=== PATIENT | female | born 1945 | race Caucasian/White ===

== ENCOUNTER 2017-07-25 12:38 | Inpatient (IN) | payer MEDICARE, BC ==
[~2017-07-25] VITALS: Ht 157.5 cm; Wt 55.7 kg
--- NOTE | ~2017-07-25 | EC ---
PATIENT:YENI ZHU DATE OF SERVICE: 07/25/17 SEX: F MEDICAL RECORD: [id number] DATE OF : 41 LOCATION:D.M2 D.213 AGE OF PATIENT: 72 ADMISSION DATE: 07/25/17 REFERRING PHYSICIAN: INTERPRETING PHYSICIAN: CALVIN BEAULIEU MD ECHOCARDIOGRAM REPORT ECHO CHARGES 4 ECHO COMPLETE CLINICAL DIAGNOSIS: CHF ECHOCARDIOGRAPHIC MEASUREMENTS (adult normal given) AC root (d.<3.7cm) 2.1 cm LV Septum d (<1.2 cm> 1.0 cm Valve Excursion 1.0 cm LV Septum (systole) 1.1 cm Left Atria (s.<4.0cm> 4.1 cm LVPW d(<1.2cm) 1.1 cm RV (d.<2.3cm) 4.2 cm LVPW (sytole) 1.3 cm LV diastole(<5.6CM) 5.8 cm MV E-F(>70mm/sec) cm LV systole 4.9 cm LVOT Diameter 1.5 cm MV exc.(>10mm) 1.1 cm Est.ejection fraction (50-75%) % Pericardial Effusion N DOPPLER: LVIT cm/sec A cm/sec E cm/sec LA cm/sec RVSP 37 mmHg LVOT 61 cm/sec AOP1/2T m/s Asc. Ao 149 cm/sec RVOT 26 cm/sec RA cm/sec PA 98 cm/sec AV Gradient Peak 8.89 mmHg AV Mean 5.35 mmHg AV Area 1.0 cm MV Gradient Peak 8.62 mmHg MV Mean 1.86 mmHg MV Area cm COMMENTS: [place]ard Machine Operator: 2 DARCY PIZARRO Bar Attendant: 3 Dr. Freeman TAPE# PACS DATE OF SERVICE: 07/27/2017 Adequate 2D echo, color flow and spectral Doppler, and M-mode. No LVH. LV internal dimensions are upper limits of normal, mildly dilated at 5.8 cm. 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 Estimated EF 20% to 25%. Aortic valve is tricuspid. No stenosis by Doppler interrogation. The left atrium is upper limits of normal, mildly dilated at 4.1 cm. Mitral valve shows no prolapse. Akze-lb-rbsosfnp MR. Right-sided chamber is grossly normal. Mild plus TR. ECHOCARDIOGRAM REPORT [id number] YENI ZHU TRANSINT:[id number] Voice Confirmation ID: [id number] DOCUMENT ID: [id number] 08/01/2017 Edited to correct date of service, dmm. CALVIN BEAULIEU MD at 0823 CC: [id number] DICTATION DATE: 07/28/17 1047 COSMETICIAN APPRENTICE: 07/28/17 1538 DIS IN 07/30/17 [place] [id number] [place] [id number]
[2017-07-25 13:24] LABS: BASOPHILS 0.2 % (0-2); EOSINOPHILS 0.1 % (0-7); HEMATOCRIT 44.7 % (36.0-48.0); HEMOGLOBIN 15.3 g/dL (12-16); IMMATURE GRANULOCYTES 0.4 % (0-5); LYMPHOCYTES 18.8 % (15-50); MCH 31.9 pg (26.0-34.0); MCHC 34.2 g/dL (31.0-37.0); MCV 93.3 fL (80.0-100.0); MEAN PLATELET VOLUME 10.1 fL (7.4-10.4); MONOCYTES 5.7 % (2-11); NEUTROPHILS 74.8 % (40-80); PLATELET COUNT 351 10x3/uL (130-400); RBC 4.79 10x6/uL (4.00-5.40); RDW 15.2 % (11.5-14.5); WBC 9.3 10x3/uL (4.8-10.8)
[2017-07-25 13:37] LABS: ALBUMIN 3.2 g/dL (3.4-5.0); ANION GAP 15.7 mmol/L (8-16); CALCIUM 8.6 mg/dL (8.5-10.1); CARBON DIOXIDE 21.9 mmol/L (21.0-32.0); CREATININE - SERUM 1.1 mg/dL (0.6-1.3); POTASSIUM - SERUM 4.6 mmol/L (3.5-5.1); PROTEIN - SERUM 6.2 g/dL (6.4-8.2)
[2017-07-25 14:14] LABS: APPEARANCE HAZY (CLEAR); BILIRUBIN NEGATIVE (NEGATIVE); COLOR YELLOW (YELLOW); GLUCOSE NEGATIVE (NEGATIVE); KETONE NEGATIVE (NEGATIVE); NITRITE NEGATIVE (NEGATIVE); PROTEIN TRACE mg/dL (NEGATIVE); SPECIFIC GRAVITY 1.025 (1.005-1.020)
[2017-07-25 14:15] LABS: BACTERIA MODERATE /hpf (NONE SEEN); WHITE CELLS - URINE >50 /hpf (0-5)
[2017-07-25 14:16] LABS: MUCUS <1+ /lpf (NONE SEEN)
[2017-07-25 17:27] VITALS: BP 111/78; BMI 25.3
[2017-07-25 21:44] VITALS: BP 118/76
[2017-07-26 01:15] VITALS: BP 124/83
[2017-07-26 05:58] VITALS: BP 127/89
[2017-07-26 06:11] LABS: BASOPHILS 0.2 % (0-2); EOSINOPHILS 0.7 % (0-7); HEMOGLOBIN 15.4 g/dL (12-16); IMMATURE GRANULOCYTES 0.2 % (0-5); LYMPHOCYTES 27.5 % (15-50); MCH 31.5 pg (26.0-34.0); MCHC 33.5 g/dL (31.0-37.0); MCV 94.1 fL (80.0-100.0); MEAN PLATELET VOLUME 10.1 fL (7.4-10.4); MONOCYTES 8.3 % (2-11); NEUTROPHILS 63.1 % (40-80); PLATELET COUNT 331 10x3/uL (130-400); RBC 4.89 10x6/uL (4.00-5.40); RDW 15.4 % (11.5-14.5); WBC 9.9 10x3/uL (4.8-10.8)
[2017-07-26 06:34] LABS: ALBUMIN 3.2 g/dL (3.4-5.0); ANION GAP 16.5 mmol/L (8-16); BILIRUBIN - TOTAL 0.88 mg/dL (0.2-1.3); CALCIUM 8.4 mg/dL (8.5-10.1); CARBON DIOXIDE 23.5 mmol/L (21.0-32.0); CREATININE - SERUM 1.1 mg/dL (0.6-1.3); PROTEIN - SERUM 5.7 g/dL (6.4-8.2)
[2017-07-26 08:06] VITALS: BP 124/79
[2017-07-26 12:52] VITALS: BMI 25.2
[2017-07-26 15:42] VITALS: BP 120/88
[2017-07-26 15:48] VITALS: Ht 157.5 cm; Wt 55.7 kg
[2017-07-26] MEDS ORDERED: LIPITOR40 MG PO (16:00)
[2017-07-26] MEDS ORDERED: ELIQUIS2.5 MG PO (16:01)
[2017-07-26] MEDS ORDERED: COLACE100 MG PO (16:01)
[2017-07-26] MEDS ORDERED: NUTRISOURCE FI1 EACH PO (16:01)
[2017-07-26] MEDS ORDERED: MIRALAX17 GM PO (16:02)
[2017-07-26] MEDS ORDERED: ENTRESTO 24 MG1 EACH PO (16:02)
[2017-07-26] MEDS ORDERED: TOPROL XL25 MG PO (16:02)
[2017-07-27 04:00] VITALS: BP 105/72
[2017-07-27 07:00] LABS: HEMATOCRIT 47.4 % (36.0-48.0); LYMPHOCYTES 29.2 % (15-50); MCH 31.3 pg (26.0-34.0); MCHC 33.8 g/dL (31.0-37.0); MCV 92.8 fL (80.0-100.0); MEAN PLATELET VOLUME 9.5 fL (7.4-10.4); NEUTROPHILS 64.3 % (40-80); PLATELET COUNT 333 10x3/uL (130-400); RBC 5.11 10x6/uL (4.00-5.40); WBC 8.4 10x3/uL (4.8-10.8)
[2017-07-27 07:07] LABS: CALCIUM 8.6 mg/dL (8.5-10.1); CREATININE - SERUM 1.3 mg/dL (0.6-1.3)
[2017-07-27 07:09] LABS: ANION GAP 12.1 mmol/L (8-16); CARBON DIOXIDE 33.2 mmol/L (21.0-32.0); POTASSIUM - SERUM 3.3 mmol/L (3.5-5.1)
[2017-07-27 08:25] VITALS: BP 106/72
[2017-07-27 11:43] VITALS: BP 107/66
[2017-07-27 15:49] VITALS: BP 117/79
[2017-07-27 19:00] VITALS: BP 101/67
[2017-07-28 04:00] VITALS: BP 122/88
[2017-07-28 05:34] LABS: BASOPHILS 0.1 % (0-2); EOSINOPHILS 1.5 % (0-7); HEMATOCRIT 44.8 % (36.0-48.0); IMMATURE GRANULOCYTES 0.1 % (0-5); LYMPHOCYTES 28.6 % (15-50); MCH 31.4 pg (26.0-34.0); MCHC 33.5 g/dL (31.0-37.0); MCV 93.7 fL (80.0-100.0); MEAN PLATELET VOLUME 10.3 fL (7.4-10.4); MONOCYTES 10.8 % (2-11); NEUTROPHILS 58.9 % (40-80); PLATELET COUNT 341 10x3/uL (130-400); RBC 4.78 10x6/uL (4.00-5.40); RDW 15.4 % (11.5-14.5); WBC 7.4 10x3/uL (4.8-10.8)
[2017-07-28 05:53] LABS: ANION GAP 12.1 mmol/L (8-16); CARBON DIOXIDE 30.4 mmol/L (21.0-32.0); CREATININE - SERUM 1.1 mg/dL (0.6-1.3); POTASSIUM - SERUM 3.5 mmol/L (3.5-5.1)
[2017-07-28 07:00] VITALS: BP 128/87
[2017-07-28 21:39] VITALS: BP 108/65
[2017-07-29 03:30] VITALS: BP 128/84
[2017-07-29 05:22] LABS: BASOPHILS 0.4 % (0-2); EOSINOPHILS 1.2 % (0-7); HEMATOCRIT 46.9 % (36.0-48.0); HEMOGLOBIN 16.3 g/dL (12-16); IMMATURE GRANULOCYTES 0.1 % (0-5); LYMPHOCYTES 34.9 % (15-50); MCHC 34.8 g/dL (31.0-37.0); MCV 94.9 fL (80.0-100.0); MEAN PLATELET VOLUME 10.2 fL (7.4-10.4); MONOCYTES 7.9 % (2-11); NEUTROPHILS 55.5 % (40-80); PLATELET COUNT 363 10x3/uL (130-400); RBC 4.94 10x6/uL (4.00-5.40); RDW 15.5 % (11.5-14.5)
[2017-07-29 05:27] LABS: WBC 9.4 10x3/uL (4.8-10.8)
[2017-07-29 05:33] LABS: ANION GAP 13.9 mmol/L (8-16); CARBON DIOXIDE 30.8 mmol/L (21.0-32.0); CREATININE - SERUM 1.2 mg/dL (0.6-1.3); POTASSIUM - SERUM 3.7 mmol/L (3.5-5.1)
[2017-07-29 08:56] VITALS: BP 98/66
[2017-07-29 12:15] VITALS: BP 107/69
[2017-07-29 16:19] VITALS: BP 110/66
[2017-07-29 19:00] VITALS: BP 105/75
[2017-07-30 04:00] VITALS: BP 96/61
[2017-07-30 06:31] LABS: BASOPHILS 0.1 % (0-2); EOSINOPHILS 1.9 % (0-7); HEMATOCRIT 43.9 % (36.0-48.0); HEMOGLOBIN 14.6 g/dL (12-16); IMMATURE GRANULOCYTES 0.1 % (0-5); MCH 31.2 pg (26.0-34.0); MCHC 33.3 g/dL (31.0-37.0); MCV 93.8 fL (80.0-100.0); MEAN PLATELET VOLUME 10.5 fL (7.4-10.4); MONOCYTES 11.1 % (2-11); NEUTROPHILS 60.8 % (40-80); PLATELET COUNT 308 10x3/uL (130-400); RBC 4.68 10x6/uL (4.00-5.40); RDW 15.1 % (11.5-14.5)
[2017-07-30 06:34] LABS: ANION GAP 15.1 mmol/L (8-16); CALCIUM 8.6 mg/dL (8.5-10.1); CARBON DIOXIDE 30.8 mmol/L (21.0-32.0); CREATININE - SERUM 1.1 mg/dL (0.6-1.3); POTASSIUM - SERUM 3.9 mmol/L (3.5-5.1)
[2017-07-30 06:36] LABS: WBC 6.7 10x3/uL (4.8-10.8)
[2017-07-30 08:23] VITALS: BP 99/74
[2017-07-30 11:35] VITALS: BP 90/62
== END 2017-07-30 12:12 | disposition home or self-care (01) | DRG 291 ==
LOC: D.ER 12:38 → D.M2 15:49
PROVIDERS: Family Medicine; Internal Medicine Nephrology
DX: I50.33 Acute on chronic diastolic (congestive) heart failure (principal); G93.40 Encephalopathy, unspecified; N39.0 Urinary tract infection, site not specified; F01.51 Vascular dementia, unspecified severity, with behavioral disturbance; I69.919 Unspecified symptoms and signs involving cognitive functions following unspecified cerebrovascular disease; Z87.891 Personal history of nicotine dependence; F22 Delusional disorders

== ENCOUNTER 2018-05-03 12:49 | Inpatient (IN) | payer MEDICARE, BC ==
[~2018-05-03] VITALS: Ht 157.5 cm; Wt 52.2 kg
--- NOTE | ~2018-05-03 | MORECARE ---
CASE MANAGEMENT DISCHARGE SUMMARY PATIENT: YENI ZHU UNIT: [id number] ADM DATE: 05/03/18 AGE: 72 : 43 SEX: F ROOM/BED: D.2227 AUTHOR: EMANUEL,DOC PHYSICIAN: REFERRING PHYSICIAN: NATHAN JARRETT MD DATE OF SERVICE: 05/08/18 Discharge Plan Patient Name: YENI HZU Facility: [facility]:[place] : 1945 Planned Disposition: Anticipated Discharge Date: 05/06/18 Discharge Date: Expected LOS: 3 Initial Reviewer: [email or web address] Initial Review Date: 05/03/2018 Generated: 05/08/18 6:00 pm Comments DCP- Discharge Planning Updated by [id number]: Leena Melgar on 05/08/18 3:[address] Attempted to call the assistant center director at [facility] without success. [place] attempted to have me speak with Jay (assistant county engineer), but he is unavailable. Will attempt to speak with director tomorrow to have patient transferred [facility] to [facility]. CM will continue to follow and assist with discharge planning/needs. DCP- Discharge Planning Updated by [email or web address]: Leena Melgar on 05/08/18 12:[address] Spoke with Luci at the [facility] memory care unit twice today concerning discharge today or tomorrow. States the DON may need to see her first and she will have her call me. I have not heard from her today so I recalled and Luci states "Elise should be back in the office in 30 minutes." Will try and call again in 30 minutes. I notified the patient of discharge tomorrow and she states I can call her son. I spoke with her son, Amilcar and he is in agreement with discharge. He [facility]. CM will continue to follow and assist with discharge planning/needs. DCP- Discharge Planning Updated by [email or web address]: Vinita Bob on 05/03/18 5:[address] Patient Name: YENI ZHU Admission Status: ER Accout number: [id number] Admission Date: 05-03-2018 : 1945 Admission Diagnosis: Attending: NATHAN JARRETT Current LOS: 1 Anticipated DC Date: 05-06-2018 Planned Disposition: Primary Insurance: MEDICARE A & B Discharge Planning Comments: CM met with patient her son Amilcar, and her sister Juana to complete initial dc planning assessment. CM educated all on the CM role and verbal consent given by patient to complete assessment. Patient lives at the [facility] Care Unit. Juana reports that she has increased altered mental status changes this am. She is forgetful but can usually carry on conversation with her. She is not able to have conversation or answer questions in the ER. At discharge [facility] plan [facility] and Juana feels this is a safe discharge. Juana denied known discharge needs at this time. CM will continue to follow and will assist as needed with dc plans/needs. See below for more assessment information. Greenhouse Grower: Vinita Bob RN, [facility] DCPIA - Discharge Planning Initial Assessment Updated by [email or web address]: Vinita Bob on 05/03/18 6:00 pm * Is the patient Alert and Oriented? No * How many steps to enter\\exit or inside your home? None * PCP Dr. Bailey * Pharmacy [facility] * Preadmission Environment Assisted Living * Facility Name [facility] * ADLs Partial Dependent * Partial ADLs (Assistance needed) Bathing Dressing Medication Management Toileting * Equipment None * List name and contact numbers for known caregivers / representatives who currently or will assist patient after discharge: Juana Wong - sister - [phone] Amilcar Pedraza - son - [phone] * Verbal permission to speak to the caregivers and representatives has been obtained from the patient. Yes * Community resources currently utilized None * Additional services required to return to the preadmission environment? No * Can the patient safely return to the preadmission environment? Yes * Has this patient been hospitalized within the prior 30 days at any hospital? No Last DP export: 05/08/18 12:24 Patient Name: YENI ZHU Page 48775 at 1700 All edits/amendments must be made on the electronic document DICTATION DATE: 05/08/181658 MOLD SPRAYER: MO 05/08/181658 RPT#: [id number] DC DATE: STATUS: ADM IN [facility] [address] [facility] [place] [address] END OF REPORT
--- NOTE | ~2018-05-03 | MORECARE ---
CASE MANAGEMENT DISCHARGE SUMMARY PATIENT: YENI ZHU UNIT: [id number] ADM DATE: 05/03/18 AGE: 72 : 43 SEX: F ROOM/BED: D.2227 AUTHOR: EMANUEL,DOC PHYSICIAN: REFERRING PHYSICIAN: NATHAN JARRETT MD DATE OF SERVICE: 05/12/18 Discharge Plan Patient Name: YENI ZHU Facility: [facility]:[place] : 1945 Planned Disposition: Assisted Living Anticipated Discharge Date: 05/06/18 Discharge Date: 05/09/2018 Expected LOS: 3 Initial Reviewer: [email or web address] Initial Review Date: 05/03/2018 Generated: 05/12/18 3:07 pm Comments DCP- Discharge Planning Updated by [email or web address]: Leena Melgar on 05/09/18 1:[address] [facility] to notify [facility] do have discharge orders written, spoke with Rocky. He is unable to locate Magali (ELLIOTT) at this time, but will relay the message. I tried to call Magali's number [phone] but a recording comes on that says "your call did not go through". I called Rocky back and he states they will pick patient up in an hour. I spoke with patient's son, Amilcar, and informed she would be picked up in one hour. Amilcar is in agreement to discharge plan. CM will continue to follow and assist with discharge planning/needs. DCP- Discharge Planning Updated by [email or web address]: Leena Melgar on 05/09/18 11:[address] [facility] with [facility], they will accept patient back today. CM will call [facility] and inform when we have discharge orders. CM will continue to follow and assist with discharge planning/needs. DCP- Discharge Planning Updated by [email or web address]: Leena Melgar on 05/09/18 8:[address] Spoke with Jay at [facility] and informed that I anticipated her to come back today. Jay states that either himself or the director will come out this morning and do an evaluation. CM will continue to follow and assist with discharge planning/needs. DCP- Discharge Planning Updated by [email or web address]: Leena Melgar on 05/08/18 3:[address] Attempted to call the telephone directory distributor driver at [facility] without success. [place] attempted to have me speak with Jay (logistics assistant), but he is unavailable. Will attempt to speak with director tomorrow to have patient transferred [facility] to [facility]. CM will continue to follow and assist with discharge planning/needs. DCP- Discharge Planning Updated by [email or web address]: Leena Melgar on 05/08/18 12:[address] Spoke with Luci at the [facility] memory care unit twice today concerning discharge today or tomorrow. States the DON may need to see her first and she will have her call me. I have not heard from her today so I recalled and Luci states "Elise should be back in the office in 30 minutes." Will try and call again in 30 minutes. I notified the patient of discharge tomorrow and she states I can call her son. I spoke with her son, Amilcar and he is in agreement with discharge. He states [facility] home. CM will continue to follow and assist with discharge planning/needs. DCP- Discharge Planning Updated by [email or web address]: Vinita Bob on 05/03/18 5:[address] Patient Name: YENI ZHU Admission Status: ER Accout number: [id number] Admission Date: 05-03-2018 : 1945 Admission Diagnosis: Attending: NATHAN JARRETT Current LOS: 1 Anticipated DC Date: 05-06-2018 Planned Disposition: Primary Insurance: MEDICARE A & B Discharge Planning Comments: CM met with patient her son Amilcar, and her sister Juana to complete initial dc planning assessment. CM educated all on the CM role and verbal consent given by patient to complete assessment. Patient lives at the [facility] Memory Care Unit. Juana reports that she has increased altered mental status changes this am. She is forgetful but can usually carry on conversation with her. She is not able to have conversation or answer questions in the ER. At discharge [facility] and Juana feels this is a safe discharge. Juana denied known discharge needs at this time. CM will continue to follow and will assist as needed with dc plans/needs. See below for more assessment information. Centrifugal Drier Operator: Vinita Bob RN, [facility] DCPIA - Discharge Planning Initial Assessment Updated by [id number]: Vinita Bob on 05/03/18 6:00 pm * Is the patient Alert and Oriented? No * How many steps to enter\\exit or inside your home? None * PCP Dr. Bailey * Pharmacy [facility] * Preadmission Environment Assisted Living * Facility [facility] * ADLs Partial Dependent * Partial ADLs (Assistance needed) Bathing Dressing Medication Management Toileting * Equipment None * List name and contact numbers for known caregivers / representatives who currently or will assist patient after discharge: Juana Wong - sister - [phone] Amilcar Pedraza - son - [phone] * Verbal permission to speak to the caregivers and representatives has been obtained from the patient. Yes * Community resources currently utilized None * Additional services required to return to the preadmission environment? No * Can the patient safely return to the preadmission environment? Yes * Has this patient been hospitalized within the prior 30 days at any hospital? No Coverage Notice Reviewer: [id number] Ricky Melgar Notice Issued Date-Time: 05/09/2018 14:36 Notice Type: IM Discharge Notice Notice Delivered To: Family Member Relationship to Patient: Son Wool Sampler Name: Amilcar Pedraza Delivery Method: HAND - Hand Delivered Kelly Days: Prior Verbal Notification: Yes Recipient Understood Notice: Yes Recipient Signature: Med Rec Note Co-signed by Attending: Coverage Notice Comment: I informed patient of discharge and IMM and spoke with son on the phone, they are in agreement, understand IMM, left copy of IMM at bedside Last DP export: 05/09/18 1:50 Patient Name: YENI ZHU Page 19841 at 1407 All edits/amendments must be made on the electronic document DICTATION DATE: 05/12/18 1407 PAPER CONE MACHINE OPERATOR: MO 05/12/18 1407 RPT#: [id number] DC DATE:05/09/18 STATUS: DIS IN [facility] [address] [place] [address] END OF REPORT
--- NOTE | ~2018-05-03 | MORECARE ---
CASE MANAGEMENT DISCHARGE SUMMARY PATIENT: YENI ZHU UNIT: [id number] ADM DATE: 05/03/18 AGE: 72 : 43 SEX: F ROOM/BED: D.2227 AUTHOR: ARUNA CASTELLANOS PHYSICIAN: REFERRING PHYSICIAN: NATHAN JARRETT MD DATE OF SERVICE: 05/08/18 Discharge Plan Patient Name: YENI ZHU Facility: [facility]:[place] : 1945 Planned Disposition: Anticipated Discharge Date: 05/06/18 Discharge Date: Expected LOS: 3 Initial Reviewer: [id number] Initial Review Date: 05/03/2018 Generated: 05/08/18 2:24 pm Comments DCP- Discharge Planning Updated by [email or web address]: Leena Melgar on 05/08/18 12:[address] [facility] today concerning discharge today or tomorrow. States the DON may need to see her first and she will have her call me. I have not heard from her today so I recalled and Luci states "Elise should be back in the office in 30 minutes." Will try and call again in 30 minutes. I notified the patient of discharge tomorrow and she states I can call her son. I spoke with her son, Amilcar and he is in agreement with discharge. He states [facility] home. CM will continue to follow and assist with discharge planning/needs. DCP- Discharge Planning Updated by [email or web address]: Vinita Paulino on 05/03/18 5:[address] Patient Name: YENI ZHU Admission Status: ER Accout number: [id number] Admission Date: 05-03-2018 : 1945 Admission Diagnosis: Attending: NATHAN JARRETT Current LOS: 1 Anticipated DC Date: 05-06-2018 Planned Disposition: Primary Insurance: MEDICARE A & B Discharge Planning Comments: CM met with patient her son Amilcar, and her sister Juana to complete initial dc planning assessment. CM educated all on the CM role and verbal consent given by patient to complete assessment. [facility]. Juana reports that she has increased altered mental status changes this am. She is forgetful but can usually carry on conversation with her. She is not able to have conversation or answer questions in the ER. At discharge [facility] plan [facility] and Juana feels this is a safe discharge. Juana denied known discharge needs at this time. CM will continue to follow and will assist as needed with dc plans/needs. See below for more assessment information. Medical Accountant: Vinita Bob RN, [facility] DCPIA - Discharge Planning Initial Assessment Updated by [email or web address]: Vinita Bob on 05/03/18 6:00 pm * Is the patient Alert and Oriented? No * How many steps to enter\\exit or inside your home? None * PCP Dr. Bailey * Pharmacy [facility] * Preadmission Environment Assisted Living * Facility Name [facility] * ADLs Partial Dependent * Partial ADLs (Assistance needed) Bathing Dressing Medication Management Toileting * Equipment None * List name and contact numbers for known caregivers / representatives who currently or will assist patient after discharge: Juana Wong - sister - [phone] Amilcar García son [phone] * Verbal permission to speak to the caregivers and representatives has been obtained from the patient. Yes * Community resources currently utilized None * Additional services required to return to the preadmission environment? No * Can the patient safely return to the preadmission environment? Yes * Has this patient been hospitalized within the prior 30 days at any hospital? No Last DP export: 05/03/18 5:09 Patient Name: YENI ZHU Page [id number] at 1324 All edits/amendments must be made on the electronic document DICTATION DATE: 05/08/18 1324 REACHER: MO 05/08/18 1324 RPT#: [id number] DC DATE: STATUS: ADM IN [facility] [address] [place] [address] END OF REPORT
--- NOTE | ~2018-05-03 | MORECARE ---
CASE MANAGEMENT DISCHARGE SUMMARY PATIENT: YENI ZHU UNIT: [id number] ADM DATE: 05/03/18 AGE: 72 : 43 SEX: F ROOM/BED: D.2227 AUTHOR: EMANUELDOC PHYSICIAN: REFERRING PHYSICIAN: NATHAN JARRETT MD DATE OF SERVICE: 05/03/18 Discharge Plan Patient Name: YENI ZHU Facility: [facility]:[place] : 1945 Planned Disposition: Anticipated Discharge Date: 05/06/18 Discharge Date: Expected LOS: 3 Initial Reviewer: [email or web address] Initial Review Date: 05/03/2018 Generated: 05/03/18 7:09 pm DCP- Discharge Planning Updated by [email or web address]: Vinita Bob on 05/03/18 5:[address] Patient Name: YENI ZHU Admission Status: ER Accout number: [id number] Admission Date: 05-03-2018 : 1945 Admission Diagnosis: Attending: NATHAN JARRETT Current LOS: 1 Anticipated DC Date: 05-06-2018 Planned Disposition: Primary Insurance: MEDICARE A & B Discharge Planning Comments: CM met with patient her son Amilcar, and her sister Juana to complete initial dc planning assessment. CM educated all on the CM role and verbal consent given by patient to complete assessment. Patient lives at the [facility]. Juana reports that she has increased altered mental status changes this am. She is forgetful but can usually carry on conversation with her. She is not able to have conversation or answer questions in the ER. At discharge [facility] and [place] feels this is a safe discharge. Juana denied known discharge needs at this time. CM will continue to follow and will assist as needed with dc plans/needs. See below for more assessment information. Fire Hydrant Operator: Vinita Bob RN, [facility] DCPIA - Discharge Planning Initial Assessment Updated by [email or web address]: Vinita Bob on 05/03/18 6:00 pm * Is the patient Alert and Oriented? No * How many steps to enter\exit or inside your home? None * PCP Dr. Bailey * Pharmacy [facility] * Preadmission Environment Assisted Living * Facility Name [facility] * ADLs Partial Dependent * Partial ADLs (Assistance needed) Bathing Dressing Medication Management Toileting * Equipment None * List name and contact numbers for known caregivers / representatives who currently or will assist patient after discharge: Juana Wong - sister - [phone] Amilcar Pedraza - son - [phone] * Verbal permission to speak to the caregivers and representatives has been obtained from the patient. Yes * Community resources currently utilized None * Additional services required to return to the preadmission environment? No * Can the patient safely return to the preadmission environment? Yes * Has this patient been hospitalized within the prior 30 days at any hospital? No Last DP export: 05/03/18 5:02 Patient Name: YENI ZHU Page 65015 at 1810 All edits/amendments must be made on the electronic document DICTATION DATE: 05/03/181808 MAINTENANCE DIRECTOR: MO 05/03/181808 RPT#: [id number] DC DATE: STATUS: ADM IN [facility] [address] [place] [address] END OF REPORT
--- NOTE | ~2018-05-03 | MORECARE ---
CASE MANAGEMENT DISCHARGE SUMMARY PATIENT: YENI ZHU UNIT: [id number] ADM DATE: 05/03/18 AGE: 72 : 43 SEX: F ROOM/BED: D.2227 AUTHOR: EMANUELDOC PHYSICIAN: REFERRING PHYSICIAN: NATHAN JARRETT MD DATE OF SERVICE: 05/09/18 Discharge Plan Patient Name: YENI ZHU Facility: [facility]:[place] : 1945 Planned Disposition: Anticipated Discharge Date: 05/06/18 Discharge Date: Expected LOS: 3 Initial Reviewer: [email or web address] Initial Review Date: 05/03/2018 Generated: 05/09/18 10:06 am Comments DCP- Discharge Planning Updated by [email or web address]: Leena Melgar on 05/09/18 8:[address] Spoke with Jay at the [facility] and informed that I anticipated her to come back today. Jay states that either himself or the director will come out this morning and do an evaluation. CM will continue to follow and assist with discharge planning/needs. DCP- Discharge Planning Updated by [email or web address]: Leena Melgar on 05/08/18 3:[address] Attempted to call the director of contracts at The [facility] without success. [place] attempted to have me speak with Jay (esol teacher assistant), but he is unavailable. Will attempt to speak with director tomorrow to have patient transferred [facility] to [facility]. CM will continue to follow and assist with discharge planning/needs. DCP- Discharge Planning Updated by [email or web address]: Leena Melgar on 05/08/18 12:[address] Spoke with Luci at the [facility] memory care unit twice today concerning discharge today or tomorrow. States the DON may need to see her first and she will have her call me. I have not heard from her today so I recalled and Luci states "Elise should be back in the office in 30 minutes." Will try and call again in 30 minutes. I notified the patient of discharge tomorrow and she states I can call her son. I spoke with her son, Amilcar and he is in agreement with discharge. He states [facility]. CM will continue to follow and assist with discharge planning/needs. DCP- Discharge Planning Updated by [id number]: Vinita Bob on 05/03/18 5:[address] Patient Name: YENI ZHU Admission Status: ER Accout number: [id number] Admission Date: 05-03-2018 : 1945 Admission Diagnosis: Attending: NATHAN JARRETT Current LOS: 1 Anticipated DC Date: 05-06-2018 Planned Disposition: Primary Insurance: MEDICARE A & B Discharge Planning Comments: CM met with patient her son Amilcar, and her sister Juana to complete initial dc planning assessment. CM educated all on the CM role and verbal consent given by patient to complete assessment. Patient lives at the [facility]. Juana reports that she has increased altered mental status changes this am. She is forgetful but can usually carry on conversation with her. She is not able to have conversation or answer questions in the ER. At discharge [facility] plan [facility] and Juana feels this is a safe discharge. Juana denied known discharge needs at this time. CM will continue to follow and will assist as needed with dc plans/needs. See below for more assessment information. Dry Cleaning Machine Operator Helper: Vinita Bob RN, [facility] DCPIA - Discharge Planning Initial Assessment Updated by [email or web address]: Vinita Bob on 05/03/18 6:00 pm * Is the patient Alert and Oriented? No * How many steps to enter\\exit or inside your home? None * PCP Dr. Bailey * Pharmacy [facility] * Preadmission Environment Assisted Living * Facility Name [facility] * ADLs Partial Dependent * Partial ADLs (Assistance needed) Bathing Dressing Medication Management Toileting * Equipment None * List name and contact numbers for known caregivers / representatives who currently or will assist patient after discharge: Juana Wong - sister - [phone] Amilcar Pedraza son - [phone] * Verbal permission to speak to the caregivers and representatives has been obtained from the patient. Yes * Community resources currently utilized None * Additional services required to return to the preadmission environment? No * Can the patient safely return to the preadmission environment? Yes * Has this patient been hospitalized within the prior 30 days at any hospital? No Last DP export: 05/08/18 4:00 Patient Name: YENI ZHU Page 15922 at 0906 All edits/amendments must be made on the electronic document DICTATION DATE: 05/09/18904 SUPERVISOR FISH HATCHERY: MO 05/09/18904 RPT#: [id number] DC DATE: STATUS: ADM IN [facility] [address] [place] [address] END OF REPORT
--- NOTE | ~2018-05-03 | MORECARE ---
CASE MANAGEMENT DISCHARGE SUMMARY PATIENT: YENI ZHU UNIT: [id number] ADM DATE: 05/03/18 AGE: 72 : 41 SEX: F ROOM/BED: D.2227 AUTHOR: ARUNA CASTELLANOS PHYSICIAN: REFERRING PHYSICIAN: NATHAN JARRETT MD DATE OF SERVICE: 05/03/18 Discharge Plan Patient Name: YENI ZHU Facility: [facility]:[place] : 1945 Planned Disposition: Anticipated Discharge Date: 05/06/18 Discharge Date: Expected LOS: 3 Initial Reviewer: [email or web address] Initial Review Date: 05/03/2018 Generated: 05/03/18 7:02 pm DCPIA - Discharge Planning Initial Assessment Updated by [email or web address]: Vinita Bob on 05/03/18 6:00 pm * Is the patient Alert and Oriented? No * How many steps to enter\exit or inside your home? None * PCP Dr. Bailey * Pharmacy [facility] * Preadmission Environment Assisted Living * Facility Name [facility] * ADLs Partial Dependent * Partial ADLs (Assistance needed) Bathing Dressing Medication Management Toileting * Equipment None * List name and contact numbers for known caregivers / representatives who currently or will assist patient after discharge: Juana Wong - sister - [phone] Amilacr García son [phone] * Verbal permission to speak to the caregivers and representatives has been obtained from the patient. Yes * Community resources currently utilized None * Additional services required to return to the preadmission environment? No * Can the patient safely return to the preadmission environment? Yes * Has this patient been hospitalized within the prior 30 days at any hospital? No Patient Name: YENI ZHU Page [id number] at 1802 All edits/amendments must be made on the electronic document DICTATION DATE: 05/03/181801 PROFESSOR OF FRENCH: MO 05/03/181801 RPT#: [id number] DC DATE: STATUS: ADM IN [facility] [address] [place] [address] END OF REPORT
--- NOTE | ~2018-05-03 | MORECARE ---
CASE MANAGEMENT DISCHARGE SUMMARY PATIENT: YENI ZHU UNIT: [id number] ADM DATE: 05/03/18 AGE: 72 : 41 SEX: F ROOM/BED: D.2227 AUTHOR: EMANUEL,DOC PHYSICIAN: REFERRING PHYSICIAN: NATHAN JARRETT MD DATE OF SERVICE: 05/09/18 Discharge Plan Patient Name: YENI ZHU Facility: [facility]:[place] : 1945 Planned Disposition: Anticipated Discharge Date: 05/06/18 Discharge Date: Expected LOS: 3 Initial Reviewer: [email or web address] Initial Review Date: 05/03/2018 Generated: 05/09/18 3:50 pm Comments DCP- Discharge Planning Updated by [email or web address]: Leena Melgar on 05/09/18 1:[address] [facility] to notify we do have discharge orders written, spoke with Rocky. He is unable to locate Magali DayamiELLIOTT) at this time, but will relay the message. I tried to call Magali's number [phone] but a recording comes on that says "your call did not go through". I called Rocky back and he states they will pick patient up in an hour. I spoke with patient's son, Amilcar, and informed she would be picked up in one hour. Amilcar is in agreement to discharge plan. CM will continue to follow and assist with discharge planning/needs. DCP- Discharge Planning Updated by [email or web address]: Leena Melgar on 05/09/18 11:[address] Spoke with [facility], they will accept patient back today. CM will call [facility] and inform when we have discharge orders. CM will continue to follow and assist with discharge planning/needs. DCP- Discharge Planning Updated by [email or web address]: Leena Melgar on 05/09/18 8:[address] Spoke with Jay at [facility] and informed that I anticipated her to come back today. Jay states that either himself or the director will come out this morning and do an evaluation. CM will continue to follow and assist with discharge planning/needs. DCP- Discharge Planning Updated by [email or web address]: Leena Melgar on 05/08/18 3:[address] Attempted to call the global program director at [facility] without success. Rocky attempted to have me speak with Jay (digital sales assistant), but he is unavailable. Will attempt to speak with director tomorrow to have patient transferred back to [facility]. CM will continue to follow and assist with discharge planning/needs. DCP- Discharge Planning Updated by [email or web address]: Leena Melgar on 05/08/18 12:[address] Spoke with Luci at the [facility] memory care unit twice today concerning discharge today or tomorrow. States the DON may need to see her first and she will have her call me. I have not heard from her today so I recalled and Luci states "Elise should be back in the office in 30 minutes." Will try and call again in 30 minutes. I notified the patient of discharge tomorrow and she states I can call her son. I spoke with her son, Amilcar and he is in agreement with discharge. He states [facility] transport her home. CM will continue to follow and assist with discharge planning/needs. DCP- Discharge Planning Updated by [email or web address]: Vinita Bob on 05/03/18 5:[address] Patient Name: YENI ZHU Admission Status: ER Accout number: [id number] Admission Date: 05-03-2018 : 1945 Admission Diagnosis: Attending: NATHAN JARRETT Current LOS: 1 Anticipated DC Date: 05-06-2018 Planned Disposition: Primary Insurance: MEDICARE A & B Discharge Planning Comments: CM met with patient her son Amilcar, and her sister Juana to complete initial dc planning assessment. CM educated all on the CM role and verbal consent given by patient to complete assessment. Patient lives at the [facility]. Juana reports that she has increased altered mental status changes this am. She is forgetful but can usually carry on conversation with her. She is not able to have conversation or answer questions in the ER. At discharge patient plan will [facility] to [facility] to [facility] and Juana feels this is a safe discharge. Juana denied known discharge needs at this time. CM will continue to follow and will assist as needed with dc plans/needs. See below for more assessment information. Abrasives Sales Representative: Vinita Bob RN, [facility] DCPIA - Discharge Planning Initial Assessment Updated by [email or web address]: Vinita Bob on 05/03/18 6:00 pm * Is the patient Alert and Oriented? No * How many steps to enter\\exit or inside your home? None * PCP Dr. Bailey * Pharmacy [facility] * Preadmission Environment Assisted Living * Facility Name [facility] * ADLs Partial Dependent * Partial ADLs (Assistance needed) Bathing Dressing Medication Management Toileting * Equipment None * List name and contact numbers for known caregivers / representatives who currently or will assist patient after discharge: Juana Wong - sister - [phone] Amilcar Pedraza - son - [phone] * Verbal permission to speak to the caregivers and representatives has been obtained from the patient. Yes * Community resources currently utilized None * Additional services required to return to the preadmission environment? No * Can the patient safely return to the preadmission environment? Yes * Has this patient been hospitalized within the prior 30 days at any hospital? No Coverage Notice Reviewer: [email or web address] Ricky Melgar Notice Issued Date-Time: 05/09/2018 14:36 Notice Type: IM Discharge Notice Notice Delivered To: Family Member Relationship to Patient: Son Hand Splitter Name: Amilcar Pedraza Delivery Method: HAND - Hand Delivered Kelly Days: Prior Verbal Notification: Yes Recipient Understood Notice: Yes Recipient Signature: Med Rec Note Co-signed by Attending: Coverage Notice Comment: I informed patient of discharge and IMM and spoke with son on the phone, they are in agreement, understand IMM, left copy of IMM at bedside Last DP export: 05/09/18 11:07 Patient Name: YENI ZHU Page [id number] at 1450 All edits/amendments must be made on the electronic document DICTATION DATE: 05/09/18 1450 CUSTOMER CARE MANAGER: MO 05/09/18 1450 RPT#: [id number] DC DATE: STATUS: ADM IN [facility] [address] [place] [address] END OF REPORT
--- NOTE | ~2018-05-03 | MORECARE ---
CASE MANAGEMENT DISCHARGE SUMMARY PATIENT: YENI ZHU UNIT: [id number] ADM DATE: 05/03/18 AGE: 72 : 43 SEX: F ROOM/BED: D.2227 AUTHOR: EMANUEL,DOC PHYSICIAN: REFERRING PHYSICIAN: NATHAN JARRETT MD DATE OF SERVICE: 05/09/18 Discharge Plan Patient Name: YENI ZHU Facility: [facility]:[place] : 1945 Planned Disposition: Anticipated Discharge Date: 05/06/18 Discharge Date: Expected LOS: 3 Initial Reviewer: [email or web address] Initial Review Date: 05/03/2018 Generated: 05/09/18 1:07 pm Comments DCP- Discharge Planning Updated by [email or web address]: Leena Melgar on 05/09/18 11:[address] Spoke with Magali at the [facility], they will accept patient back today. CM will call [facility] and inform when we have discharge orders. CM will continue to follow and assist with discharge planning/needs. DCP- Discharge Planning Updated by [email or web address]: Leena Melgar on 05/09/18 8:[address] Spoke with Jay at the [facility] and informed that I anticipated her to come back today. Jay states that either himself or the director will come out this morning and do an evaluation. CM will continue to follow and assist with discharge planning/needs. DCP- Discharge Planning Updated by [email or web address]: Leena Melgar on 05/08/18 3:[address] Attempted to call the surveillance director at [facility] without success. [place] attempted to have me speak with Jay (dental office assistant), but he is unavailable. Will attempt to speak with director tomorrow to have patient transferred back to [facility]. CM will continue to follow and assist with discharge planning/needs. DCP- Discharge Planning Updated by [email or web address]: Leena Melgar on 05/08/18 12:[address] Spoke with Luci at the [facility] memory care unit twice today concerning discharge today or tomorrow. States the DON may need to see her first and she will have her call me. I have not heard from her today so I recalled and Luci states "Elise should be back in the office in 30 minutes." Will try and call again in 30 minutes. I notified the patient of discharge tomorrow and she states I can call her son. I spoke with her son, Amilcar and he is in agreement with discharge. He states [facility] home. CM will continue to follow and assist with discharge planning/needs. DCP- Discharge Planning Updated by [email or web address]: Vinita Bob on 05/03/18 5:[address] Patient Name: YENI ZHU Admission Status: ER Accout number: [id number] Admission Date: 05-03-2018 : 1945 Admission Diagnosis: Attending: NATHAN JARRETT Current LOS: 1 Anticipated DC Date: 05-06-2018 Planned Disposition: Primary Insurance: MEDICARE A & B Discharge Planning Comments: CM met with patient her son Amilcar, and her sister Juana to complete initial dc planning assessment. CM educated all on the CM role and verbal consent given by patient to complete assessment. Patient lives at the [facility]. Juana reports that she has increased altered mental status changes this am. She is forgetful but can usually carry on conversation with her. She is not able to have conversation or answer questions in the ER. At discharge [facility] plan [facility] and Juana feels this is a safe discharge. Juana denied known discharge needs at this time. CM will continue to follow and will assist as needed with dc plans/needs. See below for more assessment information. Process Development Associate: Vinita Bob RN, [facility] DCPIA - Discharge Planning Initial Assessment Updated by [email or web address]: Vinita Bob on 05/03/18 6:00 pm * Is the patient Alert and Oriented? No * How many steps to enter\\exit or inside your home? None * PCP Dr. Bailey * Pharmacy [facility] * Preadmission Environment Assisted Living * Facility Name [facility] * ADLs Partial Dependent * Partial ADLs (Assistance needed) Bathing Dressing Medication Management Toileting * Equipment None * List name and contact numbers for known caregivers / representatives who currently or will assist patient after discharge: Juana Wong - sister - [phone] Amilcar García son - [phone] * Verbal permission to speak to the caregivers and representatives has been obtained from the patient. Yes * Community resources currently utilized None * Additional services required to return to the preadmission environment? No * Can the patient safely return to the preadmission environment? Yes * Has this patient been hospitalized within the prior 30 days at any hospital? No Last DP export: 05/09/18 8:06 Patient Name: YENI ZHU Page [id number] at 1207 All edits/amendments must be made on the electronic document DICTATION DATE: 05/09/181205 GENERAL LABOR FORKLIFT OPERATOR: MO 05/09/181205 RPT#: [id number] DC DATE: STATUS: ADM IN [facility] [address] [place] [address] END OF REPORT
[~2018-05-03 12:49] MED LIST: COLACE100 MG PO; ELIQUIS2.5 MG PO; ENTRESTO 24 MG1 EACH PO; LIPITOR40 MG PO; MIRALAX17 GM PO; NUTRISOURCE FI1 EACH PO; TOPROL XL25 MG PO
[2018-05-03] MEDS ORDERED: K-TAB10 MEQ PO (13:04)
[2018-05-03] MEDS ORDERED: BUMEX2 MG PO (13:04)
[2018-05-03 13:23] VITALS: BP 92/51
[2018-05-03 13:44] LABS: BASOPHILS 0.1 % (0-2); EOSINOPHILS 0 % (0-7); HEMATOCRIT 38.5 % (36.0-48.0); HEMOGLOBIN 13.3 g/dL (12-16); IMMATURE GRANULOCYTES 1.5 % (0-5); LYMPHOCYTES 4.2 % (15-50); MCH 32.3 pg (26.0-34.0); MCHC 34.5 g/dL (31.0-37.0); MCV 93.4 fL (80.0-100.0); MEAN PLATELET VOLUME 10.3 fL (7.4-10.4); MONOCYTES 3.8 % (2-11); NEUTROPHILS 90.4 % (40-80); RBC 4.12 10x6/uL (4.00-5.40); RDW 13.6 % (11.5-14.5); WBC 18.6 10x3/uL (4.8-10.8)
[2018-05-03 13:45] LABS: PLATELET COUNT 232 10x3/uL (130-400)
[2018-05-03 13:51] LABS: ANION GAP 16.9 mmol/L (8-16); BILIRUBIN - TOTAL 2.2 mg/dL (0.2-1.3); CALCIUM 8.4 mg/dL (8.5-10.1); CARBON DIOXIDE 22.9 mmol/L (21.0-32.0); CREATININE - SERUM 1.3 mg/dL (0.6-1.3); POTASSIUM - SERUM 3.8 mmol/L (3.5-5.1); PROTEIN - SERUM 5.8 g/dL (6.4-8.2)
[2018-05-03 15:03] VITALS: BP 88/58
[2018-05-03 15:29] LABS: APPEARANCE HAZY (CLEAR); BACTERIA FEW /hpf (NONE SEEN); BILIRUBIN NEGATIVE (NEGATIVE); COLOR YELLOW (YELLOW); EPITHELIAL CELLS 0-5 /hpf (0-5); GLUCOSE NEGATIVE (NEGATIVE); KETONE NEGATIVE (NEGATIVE); NITRITE NEGATIVE (NEGATIVE); PROTEIN TRACE mg/dL (NEGATIVE); RED CELLS - URINE 0-5 /hpf (0-5); SPECIFIC GRAVITY 1.015 (1.005-1.020); UROBILINOGEN NORMAL (NORMAL)
[2018-05-03 15:55] VITALS: BP 92/51
[2018-05-03 21:31] VITALS: BP 87/48
[2018-05-03 23:30] VITALS: BP 90/47
[2018-05-04 01:00] VITALS: BP 90/47
[2018-05-04 06:03] VITALS: BP 81/45
[2018-05-04 06:05] VITALS: BP 87/43
[2018-05-04 06:53] LABS: ANION GAP 11.9 mmol/L (8-16); CALCIUM 7.9 mg/dL (8.5-10.1); CARBON DIOXIDE 25.7 mmol/L (21.0-32.0); CREATININE - SERUM 1.2 mg/dL (0.6-1.3); POTASSIUM - SERUM 3.6 mmol/L (3.5-5.1)
[2018-05-04 06:59] LABS: BASOPHILS 0.1 % (0-2); EOSINOPHILS 0 % (0-7); HEMATOCRIT 31.9 % (36.0-48.0); IMMATURE GRANULOCYTES 0.6 % (0-5); LYMPHOCYTES 7.4 % (15-50); MCH 32.1 pg (26.0-34.0); MCHC 34.5 g/dL (31.0-37.0); MEAN PLATELET VOLUME 10.9 fL (7.4-10.4); MONOCYTES 2.5 % (2-11); NEUTROPHILS 89.4 % (40-80); PLATELET COUNT 223 10x3/uL (130-400); RBC 3.43 10x6/uL (4.00-5.40); RDW 13.9 % (11.5-14.5); WBC 17.3 10x3/uL (4.8-10.8)
[2018-05-04 14:11] VITALS: BP 93/67
[2018-05-04 20:00] VITALS: BP 91/58
[2018-05-05 04:22] LABS: BASOPHILS 0 % (0-2); EOSINOPHILS 0 % (0-7); HEMATOCRIT 34.1 % (36.0-48.0); HEMOGLOBIN 11.5 g/dL (12-16); IMMATURE GRANULOCYTES 0.3 % (0-5); LYMPHOCYTES 4.9 % (15-50); MCH 31.8 pg (26.0-34.0); MCHC 33.7 g/dL (31.0-37.0); MCV 94.2 fL (80.0-100.0); MEAN PLATELET VOLUME 10.7 fL (7.4-10.4); MONOCYTES 3.5 % (2-11); NEUTROPHILS 91.3 % (40-80); PLATELET COUNT 246 10x3/uL (130-400); RBC 3.62 10x6/uL (4.00-5.40); RDW 13.7 % (11.5-14.5); WBC 19.6 10x3/uL (4.8-10.8)
[2018-05-05 04:33] LABS: ANION GAP 15.9 mmol/L (8-16); CALCIUM 8.5 mg/dL (8.5-10.1); CARBON DIOXIDE 21.9 mmol/L (21.0-32.0); CREATININE - SERUM 1.1 mg/dL (0.6-1.3); POTASSIUM - SERUM 3.8 mmol/L (3.5-5.1); VANCOMYCIN - TROUGH 4.8 ug/mL (10.0-20.0)
[2018-05-05 06:10] VITALS: BP 110/73
[2018-05-05 08:44] VITALS: BP 106/76
[2018-05-05 12:20] VITALS: BP 110/75
[2018-05-05 15:19] VITALS: Ht 157.5 cm; Wt 52.2 kg
[2018-05-05 16:39] VITALS: BP 115/69
[2018-05-05 20:00] VITALS: BP 126/85
[2018-05-06 05:00] VITALS: BP 122/77
[2018-05-06 06:03] LABS: BASOPHILS 0.1 % (0-2); EOSINOPHILS 0 % (0-7); HEMATOCRIT 35.9 % (36.0-48.0); HEMOGLOBIN 12.3 g/dL (12-16); IMMATURE GRANULOCYTES 1.9 % (0-5); LYMPHOCYTES 6.9 % (15-50); MCH 32.2 pg (26.0-34.0); MCHC 34.3 g/dL (31.0-37.0); MEAN PLATELET VOLUME 11.2 fL (7.4-10.4); MONOCYTES 7.5 % (2-11); NEUTROPHILS 83.6 % (40-80); PLATELET COUNT 253 10x3/uL (130-400); RBC 3.82 10x6/uL (4.00-5.40); RDW 13.8 % (11.5-14.5); WBC 17.5 10x3/uL (4.8-10.8)
[2018-05-06 06:17] LABS: ANION GAP 14.6 mmol/L (8-16); CALCIUM 8.9 mg/dL (8.5-10.1); CARBON DIOXIDE 23.7 mmol/L (21.0-32.0); CREATININE - SERUM 1.2 mg/dL (0.6-1.3); POTASSIUM - SERUM 4.3 mmol/L (3.5-5.1)
[2018-05-06 08:24] VITALS: BP 131/73
[2018-05-06 12:04] VITALS: BP 128/81
[2018-05-06 16:44] VITALS: BP 136/86
[2018-05-06 20:00] VITALS: BP 155/75
[2018-05-07 04:53] LABS: BASOPHILS 0.1 % (0-2); EOSINOPHILS 0 % (0-7); HEMATOCRIT 33.8 % (36.0-48.0); HEMOGLOBIN 11.5 g/dL (12-16); IMMATURE GRANULOCYTES 1.5 % (0-5); LYMPHOCYTES 8.6 % (15-50); MCH 31.4 pg (26.0-34.0); MCV 92.3 fL (80.0-100.0); MEAN PLATELET VOLUME 10.9 fL (7.4-10.4); MONOCYTES 9.8 % (2-11); PLATELET COUNT 252 10x3/uL (130-400); RBC 3.66 10x6/uL (4.00-5.40); RDW 13.5 % (11.5-14.5); WBC 17.6 10x3/uL (4.8-10.8)
[2018-05-07 05:00] VITALS: BP 107/76
[2018-05-07 05:24] LABS: ANION GAP 15.5 mmol/L (8-16); CALCIUM 8.2 mg/dL (8.5-10.1); CARBON DIOXIDE 21.6 mmol/L (21.0-32.0); CREATININE - SERUM 1.2 mg/dL (0.6-1.3); POTASSIUM - SERUM 4.1 mmol/L (3.5-5.1)
[2018-05-07 08:51] VITALS: BP 113/72
[2018-05-07 12:16] VITALS: BP 125/61
[2018-05-07 20:00] VITALS: BP 109/68
[2018-05-08 06:56] LABS: BASOPHILS 0.2 % (0-2); EOSINOPHILS 0 % (0-7); HEMATOCRIT 33.7 % (36.0-48.0); HEMOGLOBIN 11.5 g/dL (12-16); IMMATURE GRANULOCYTES 3.8 % (0-5); LYMPHOCYTES 11.2 % (15-50); MCH 31.6 pg (26.0-34.0); MCHC 34.1 g/dL (31.0-37.0); MCV 92.6 fL (80.0-100.0); MEAN PLATELET VOLUME 10.9 fL (7.4-10.4); MONOCYTES 12.5 % (2-11); NEUTROPHILS 72.3 % (40-80); PLATELET COUNT 273 10x3/uL (130-400); RBC 3.64 10x6/uL (4.00-5.40); RDW 13.6 % (11.5-14.5)
[2018-05-08 06:57] LABS: WBC 12.5 10x3/uL (4.8-10.8)
[2018-05-08 07:14] LABS: ANION GAP 17.6 mmol/L (8-16); CALCIUM 8.1 mg/dL (8.5-10.1); CARBON DIOXIDE 17.9 mmol/L (21.0-32.0); CREATININE - SERUM 1.1 mg/dL (0.6-1.3); POTASSIUM - SERUM 4.5 mmol/L (3.5-5.1)
[2018-05-08 08:52] VITALS: BP 122/82
[2018-05-08 12:55] VITALS: BP 114/76
[2018-05-08 17:37] VITALS: BP 118/80
[2018-05-08 21:46] VITALS: BP 122/86
[2018-05-09 06:18] LABS: ANION GAP 26.2 mmol/L (8-16); CALCIUM 8.2 mg/dL (8.5-10.1); CARBON DIOXIDE 10.8 mmol/L (21.0-32.0); CREATININE - SERUM 1.5 mg/dL (0.6-1.3)
[2018-05-09 06:22] LABS: BASOPHILS 0.2 % (0-2); EOSINOPHILS 0.1 % (0-7); HEMATOCRIT 35.7 % (36.0-48.0); IMMATURE GRANULOCYTES 5.1 % (0-5); LYMPHOCYTES 15.6 % (15-50); MCH 31.5 pg (26.0-34.0); MCHC 33.6 g/dL (31.0-37.0); MCV 93.7 fL (80.0-100.0); MEAN PLATELET VOLUME 10.8 fL (7.4-10.4); MONOCYTES 10.5 % (2-11); NEUTROPHILS 68.5 % (40-80); PLATELET COUNT 327 10x3/uL (130-400); RBC 3.81 10x6/uL (4.00-5.40); WBC 13.6 10x3/uL (4.8-10.8)
[2018-05-09 06:38] VITALS: BP 120/79
[2018-05-09 07:56] VITALS: BP 125/82
[2018-05-09 11:56] VITALS: BP 132/79
[2018-05-09] MEDS ORDERED: DOXYCYCLINE HY100 M2 PO (14:53)
[2018-05-11] MEDS ORDERED: COZAAR50 MG PO (12:01)
[2018-05-11] MEDS ORDERED: BUMETANIDE0.5 MG PO (12:02)
[2018-05-11] MEDS ORDERED: ENTRESTO 24 MG1 EACH PO (12:03)
[2018-05-15 03:11] LABS: CHENODEOXYCHOLIC ACID 0.62 umol/L (()); CHOLIC ACID 0.13 umol/L (()); DEOXYCHOLIC ACID 0.83 umol/L (()); TOTAL BILE ACIDS 1.7 umol/L (()); URSODEOXYCHOLIC ACID 0.11 umol/L (())
== END 2018-05-09 15:43 | disposition home or self-care (01) | DRG 871 ==
LOC: D.ER 12:49 → D.EDHOLD 15:46 → D.MS 15:46 → D.SDCHOLD 05-09 07:48 → D.MS 05-09 07:50
PROVIDERS: Family Medicine; Internal Medicine Nephrology
DX: A41.9 Sepsis, unspecified organism (principal); J18.9 Pneumonia, unspecified organism; N17.9 Acute kidney failure, unspecified; F03.91 Unspecified dementia, unspecified severity, with behavioral disturbance; F05 Delirium due to known physiological condition; N39.0 Urinary tract infection, site not specified